=== PATIENT | female | born 1960 | race African-American/Black ===

== ENCOUNTER 2016-07-31 17:37 | Emergency (ER) | payer OTHER, MEDICAID ==
[~2016-07-31] VITALS: Ht 167.6 cm; Wt 54.9 kg
[~2016-07-31 17:37] MED LIST: ADVAIR DISKUS 21 DSK IH; ALBUTEROL0.09 MG/A2 IH; BUPROPION100 M1 PO; CALCIUM PO; CARISOPRODOL350 M1 PO; DILAUDID2 M1 PO; FERROUS SULFAT325 MG PO; OMEPRAZOLE20 M1 PO; PEN-VEE K500 MG PO; PHENERGAN25 M1 PO; Q-PAP500 MG PO; TRIAMTERENE/HCT1 CAP PO; VALIUM10 MG PO; [UNRECOGNIZED DRUG - OTHER] PO
[2016-07-31 17:41] VITALS: BP 143/78
[2016-07-31] MEDS ORDERED: TOPAMAX50 MG PO (17:46)
--- NOTE | 2016-07-31 19:42 | NUR ---
AMBULATED TO ER BED 6
--- NOTE | 2016-07-31 19:45 | NUR ---
55Y F PRESENT TO ER C/O OF SOB X2 DAYS. V/S TAKEN.
[2016-07-31] MEDS ORDERED: ALBUTEROL 0.083% 2.5 MG/3 ML NEBU INH ONE (20:30)
[2016-07-31] MEDS ORDERED: MORPHINE SULFATE 10 MG/ML SYR IM ONE (20:30)
[2016-07-31] MEDS ORDERED: ONDANSETRON 4 MG TAB PO ONE (21:25)
[2016-07-31 21:35] VITALS: BP 145/90
--- NOTE | 2016-07-31 21:35 | NUR ---
Patient discharged with v/s stable. Written and verbal after care instructions given and explained. Patient alert, oriented and verbalized understanding of instructions. Ambulatory with steady gait. All questions addressed prior to discharge. ID band removed. Patient advised to follow up with PMD. Rx of ALBUTEROL,BIAXIN,MEDROL, PROMETHAZINE given. Patient educated on indication of medication including possible reaction and side effects. Opportunity to ask questions provided and answered.
[2016-07-31] MEDS ORDERED: ONDANSETRON 4 MG/2 ML VIAL ONE (21:37)
[2016-07-31] MEDS ORDERED: ONDANSETRON 4 MG/5 ML ORASYR PO ONE (21:50)
== END 2016-07-31 21:35 | disposition home or self-care (01) ==
LOC: MED 17:37
DX: J40 Bronchitis, not specified as acute or chronic (principal); I10 Essential (primary) hypertension; F17.210 Nicotine dependence, cigarettes, uncomplicated; Z79.899 Other long term (current) drug therapy; Z88.0 Allergy status to penicillin; Z88.1 Allergy status to other antibiotic agents; Z88.6 Allergy status to analgesic agent; Z88.5 Allergy status to narcotic agent; Z71.6 Tobacco abuse counseling
CPT/HCPCS: 71020; 94640; 96372; 99284; J2270; J7613; Q0162